=== PATIENT | female | born 1955 | race Caucasian/White ===

== ENCOUNTER 2017-10-22 10:59 | Outpatient (CLI) | payer OTHER ==
[~2017-10-22] VITALS: Ht 172.7 cm; Wt 78.0 kg
[2017-10-22 13:43] VITALS: BP 107/67
--- NOTE | 2017-10-23 09:04 | GI Initial Consult Note ---
History of Present Illness General Date patient seen: Oct 22, 2017 Time patient seen: 10:00 Referring physician: KAILEE MOREL Reason for Consultation: Colonoscopy Screening Present Illness HPI 62 year old female patient, with no prior medical history presents today for initial colonoscopy screening. She presents with symptomatic GERD, states it has caused her epigastric pain until one point where she had an episode of emesis. In addition, she states she has constipation having a BM approximately every 3/4 days. Had recent surgery on her right bunion. Denies any unintentional weight loss or changes in dietary habits. No signs of abuse or neglect. Patient is not fall risk. Denies any use of medication. Allergies: Coded Allergies: No Known Allergies (Unverified , 10/22/17) Patient History History Provided By: Patient, Medical Record H Narrative None Past Surgical History: other - Right bunion Family History Narrative Sister had Jean. Father with DM, Heart disease. Social History: Reports: other - coffee Review of Systems All Other Systems: negative except mentioned in HPI Physical Exam Vital Signs Date Time Temp Pulse Resp B/P (MAP) Pulse Ox O2 Delivery O2 Flow Rate FiO2 10/22/17 13:43 97.7 67 107/67 95 97.7 Sp02 EP Interpretation: reviewed, normal General Appearance: well appearing, no apparent distress, alert Head: normocephalic EENT: PERRL/EOMI, normal ENT inspection Neck: supple Respiratory: normal breath sounds, no respiratory distress Cardiovascular: normal rate Gastrointestinal: normal inspection, non tender, soft, normal bowel sounds, non -distended Rectal: deferred Genitourinary: no CVA tenderness Musculoskeletal: normal inspection, back normal Neurologic: normal inspection, alert, oriented x3, responsive Psychiatric: normal inspection, judgement/insight normal, memory normal Skin: normal inspection, normal color, no rash, warm/dry, palpation normal, well hydrated Lymphatic: normal inspection, no adenopathy GI: Plan Problems: (1) GERD (gastroesophageal reflux disease) (2) Colonoscopy planned (3) Constipation Plan Colonoscopy to be scheduled pending PA, will contact patient - CLD & (Nulytely/Suprep/Movi-Prep) prep instructions given and acknowledged by patient. - NPO @ CT day prior procedure explained. will consider PPI for reflux during follow up Seen with Dr. Galeas. Thank you for this patient referral. The patient was seen and examined at bedside and all new and available data was reviewed in the patients chart. I agree with the above findings, impression and plan. (Patient seen earlier today. Signature stamp does not reflect patient encounter time.). - MD Nikki HartmanAbrazo Scottsdale CampusJacobMichael ANAI Oct 23, 2017 09:04
== END 2017-10-22 12:59 | disposition home or self-care (01) ==
LOC: PAN 10:59
DX: K21.9 Gastro-esophageal reflux disease without esophagitis (principal); K59.00 Constipation, unspecified

== ENCOUNTER 2017-11-18 14:00 | Outpatient (CLI) | payer OTHER ==
--- NOTE | 2017-11-18 15:56 | GI Progress Note ---
Assessment/Plan Problems: (1) Melanosis coli ICD Codes: K63.89 - Other specified diseases of intestine SNOMED: 02508893 (2) GERD (gastroesophageal reflux disease) ICD Codes: K21.9 - Gastro-esophageal reflux disease without esophagitis SNOMED: 380439954 (3) Constipation ICD Codes: K59.00 - Constipation, unspecified SNOMED: 05514673 Status: stable Status Narrative Seen with Dr. Galeas. Assessment/Plan Colonoscopy reviewed with patient - melanosis coli - internal / external hemorrhoids symptomatically treat hemorrhoids if present RTC prn repeat colonoscopy 5 years. The patient was seen and examined at bedside and all new and available data was reviewed in the patients chart. I agree with the above findings, impression and plan. (Patient seen earlier today. Signature stamp does not reflect patient encounter time.). - Jose Galeas MD Subjective Gastrointestinal/Abdominal: Reports: no symptoms Objective T 99 BP 101/95 P 70 95 RA General Appearance: WD/WN, no apparent distress, alert Cardiovascular: normal rate Respiratory/Chest: normal breath sounds, no respiratory distress Abdominal Exam: normal bowel sounds, non tender, soft Extremities: normal range of motion, non-tender Yuriy Jordan NP Nov 18, 2017 15:56
== END 2017-11-18 14:30 | disposition home or self-care (01) ==
LOC: PAN 14:00
DX: K21.9 Gastro-esophageal reflux disease without esophagitis (principal); K59.00 Constipation, unspecified; K63.89 Other specified diseases of intestine; K64.4 Residual hemorrhoidal skin tags; K64.8 Other hemorrhoids
CPT/HCPCS: G0463